=== PATIENT | male | born 1985 | race Hispanic/Latino ===

== ENCOUNTER 2020-03-25 21:21 | Observation (INO) | payer MEDICAID, SELFPAY ==
[2020-03-25 21:21] VITALS: BP 120/92; PULSE 76; RESP 16; TEMP 36.2; O2SAT 100; BMI 25.7
[2020-03-25 21:51] LABS: Absolute Lymphocyte Count 2.42 X10^3/uL (0.83-4.51); Absolute Neutrophil Count 5.5 X10^3/uL (2.0-7.7); Basophil# 0.02 X10^3/uL; Basophil% 0.2 % (0-1); Eosinophils% 1.2 % (0-5); Hematocrit 42.8 % (40-54); Hemoglobin 13.8 g/dL (13.0-16.5); Lymphocyte # 2.42 X10^3/ul (4.0); Lymphocyte % 27.9 % (19-41); Mean Corp Hgb Conc 32.2 g/dL (32-36); Mean Corpuscular Hgb 30.9 pg (27.0-32.0); Mean Platelet Vol. 9.1 fl (6.2-12.0); Monocyte# 0.63 X10^3/uL; Monocyte% 7.3 % (0-10); NRBC Flagged by Analyzer 0 % (0-5); Neutrophil # 5.48 X10^3/uL (2.7-7.7); Neutrophil % 63.2 % (47-70); Platelet Count 247 K/mm3 (150-450); RBC Distribution Width CV 13.3 % (11.6-14.6); Red Blood Count 4.46 M/mm3 (4.6-6.2); White Blood Count 8.7 K/mm3 (4.4-11.0)
[2020-03-25 21:59] LABS: Amphetamine Urine VISTA NEGATIVE (<1000 ng/mL); Barbiturate Urine VISTA NEGATIVE (< 200 ng/mL); Benzodiazepine Urine VISTA NEGATIVE (< 200 ng/mL); Cocaine Urine VISTA NEGATIVE (< 300 ng/mL); Ecstacy Urine VISTA NEGATIVE (< 500 ng/mL); Methadone Urine VISTA NEGATIVE (< 300 ng/mL); PCP Urine VISTA NEGATIVE (< 25 ng/mL); THC Urine VISTA NEGATIVE (< 50 ng/mL); Vista UDS pH Range 6
[2020-03-25 22:04] LABS: ALB/GLOB Ratio 1.2 RATIO (0.9-2.4); AST(SGOT) 46 U/L (15-37); Alanine Aminotransfer ALT/SGPT 79 U/L (16-61); Albumin, Serum 4.2 g/dL (3.2-5.0); Alkaline Phosphatase 86 U/L (45-117); Anion Gap 3 (5-15); BUN 8 mg/dL (7-18); BUN/Creat Ratio 8.7 RATIO (10-20); Calcium,Total 8.9 mg/dL (8.5-10.1); Chloride 105 mmol/L (98-107); Creatinine, Serum 0.92 mg/dL (0.70-1.30); EST Glomerular Filtration Rate 99 mL/min (>60); Est Glom Filt Rate - Afr Amer 120 mL/min (>60); Estimated Creatinine Clearance 124.18 ml/min; Globulin 3.6 g/dL (2.2-4.2); Glucose 107 mg/dL (74-106); Potassium 3.7 mmol/L (3.5-5.1); Protein, Total 7.8 g/dL (6.4-8.2); Sodium Level 139 mmol/L (136-145)
[2020-03-25 22:21] LABS: Alcohol, Blood (Medical)-Serum < 3.0 mg/dL
--- NOTE | 2020-03-25 22:28 | ED.VIS.GEN ---
History of Present Illness Chief Complaint: Substance Abuse Informant: Patient Narrative: 4-year-old male with history of opioid abuse presents for detox. He states his last use was earlier today. He usually uses less than half a gram of what he thought was heroin however it could have been fentanyl. Patient used to inject but now he only snorts it. He states that he has detoxed in the past. Patient denies EtOH use. Denies other illicit drug use. Denies medical problems. Past Medical History - Allergies and Home Meds Allergies/Adverse Reactions: Allergies No Known Allergies Allergy (Verified 03/25/20 21:24) Primary Care Physician: Care Physician,No Primary [Primary Care Provider] - Prior records reviewed: Yes Past Medical History: - - Heroin abuse Lives: Alone Smoking Status: Unknown if ever smoked Alcohol: None Drugs: Heroin Review of Systems General: Denies: Chills, Fever, Sweats Eyes: Denies: Visual changes - bilaterally, Diplopia ENT: Denies: Rhinorrhea, Sore throat Cardiovascular: Denies: Chest pain, Palpitations Respiratory: Denies: Dyspnea, Cough, Dyspnea on exertion Gastrointestinal: Denies: Abdominal pain, Nausea, Vomiting, Diarrhea, Melena, Hematochezia Genitourinary: Denies: Dysuria, Hematuria, Frequency Musculoskeletal: Denies: Back pain, Extremity Pain Skin: Denies: Rash, Wounds Neurological: Denies: Headache, Weakness, Numbness Psych: Denies: Depression, Anxiety, Suicidal thoughts, Suicidal ideations, -, - Endocrine: Denies: Polyuria, Polydipsia, Heat intolerance, Cold intolerance, -, - Physical Exam Vital Signs/Narrative: Vital Signs Temp Pulse Resp BP Pulse Ox 03/25/20 21:21 97.2 F L 76 16 120/92 H 100 Inital Vital Signs reviewed: Yes General: Well nourished, No Acute Distress Head: Normocephalic, Atraumatic Eyes: Perrl, EOMI ENT: Moist mucous membranes, No rhinorrhea Cardiovascular: Regular rate, Regular rhythm Respiratory: No distress, CTA bilaterally Extremities: Nontender, No edema Skin: Normal color, No rash. Negative for: Cyanosis, Diaphoresis Neurological: Alert, Oriented x3, Cranial nerves II-XII grossly intact Psychological: Normal affect, Normal Mood Diagnostic/Tx/Re-eval Laboratory Data 03/25/20 03/25/20 03/25/20 21:30 21:35 21:35 WBC 8.7 RBC 4.46 L Hgb 13.8 Hct 42.8 MCV 96.0 H MCH 30.9 MCHC 32.2 RDW Std Deviation 47.0 H RDW Coeff of Jimena 13.3 Plt Count 247 MPV 9.1 Immature Gran % (Auto) 0.200 Neut % (Auto) 63.2 Lymph % (Auto) 27.9 [place] % (Auto) 7.3 Eos % (Auto) 1.2 Baso % (Auto) 0.2 Absolute Neuts (auto) 5.5 Absolute Lymphs (auto) 2.42 Nucleated RBC % 0 Sodium 139 Potassium 3.7 Chloride 105 Carbon Dioxide 31.0 Anion Gap 3 L BUN 8 Creatinine 0.92 Estim Creat Clear Calc 124.18 Est GFR (MDRD) Af Amer 120 Est GFR (MDRD) Non-Af 99 BUN/Creatinine Ratio 8.7 L Glucose 107 H Calcium 8.9 Total Bilirubin 0.50 AST 46 H ALT 79 H Alkaline Phosphatase 86 Total Protein 7.8 Albumin 4.2 Globulin 3.6 Albumin/Globulin Ratio 1.2 Urine Opiates Screen NEGATIVE Urine Methadone Screen NEGATIVE Ur Barbiturates Screen NEGATIVE Ur Phencyclidine Scrn NEGATIVE Ur Amphetamines Screen NEGATIVE U Methamphetamin-MDMA NEGATIVE U Benzodiazepines Scrn NEGATIVE Urine Cocaine Screen NEGATIVE U Cannabinoids Screen NEGATIVE Ur Drug Screen Comment Ethyl Alcohol 03/25/20 21:35 WBC RBC Hgb Hct MCV MCH MCHC RDW Std Deviation RDW Coeff of Jimena Plt Count MPV Immature Gran % (Auto) Neut % (Auto) Lymph % (Auto) [place] % (Auto) Eos % (Auto) Baso % (Auto) Absolute Neuts (auto) Absolute Lymphs (auto) Nucleated RBC % Sodium Potassium Chloride Carbon Dioxide Anion Gap BUN Creatinine Estim Creat Clear Calc Est GFR (MDRD) Af Amer Est GFR (MDRD) Non-Af BUN/Creatinine Ratio Glucose Calcium Total Bilirubin AST ALT Alkaline Phosphatase Total Protein Albumin Globulin Albumin/Globulin Ratio Urine Opiates Screen Urine Methadone Screen Ur Barbiturates Screen Ur Phencyclidine Scrn Ur Amphetamines Screen U Methamphetamin-MDMA U Benzodiazepines Scrn Urine Cocaine Screen U Cannabinoids Screen Ur Drug Screen Comment Ethyl Alcohol < 3.0 - Medical Decision Making 34-year-old male with history of heroin abuse presenting for detox. He states he could have been using fentanyl is unsure which type of drug he is using. Patient is not experiencing significant withdrawal symptoms currently but states he does usually have significant withdrawal while detoxing. Patient's urine drug screen is negative. EtOH is negative. His other lab work is unremarkable. His vital signs are stable he is afebrile. He was discussed with hospitalist for inpatient detox. Patient will be admitted to [facility]. Impression: 1. Opioid detox ED Disposition - Plan for ED Patient: Referrals: Care Physician,No Primary [Primary Care Provider] -
--- NOTE | 2020-03-25 22:35 | HP.PCM_ITS ---
Problem List (1) Opioid abuse Status: Acute History of Present Illness Date of Admission: 03/25/20 Chief Complaint: Desire for detoxification The patient is a 34 year old M with a significant history of drug abuse who presents to the emergency department with a desire for detoxify from alcohol. Patient uses a little less than a gram of what he thinks is heroin but concerned that it may be fentanyl. Previously he used to shoot but now he snort. His last use was on the same day of presentation at about 4 PM. When he had used about half of what he was going to use his family appeared and he had to discard the rest of the drug. His family encouraged him to come to the emergency department and enroll in a detoxification program. While the emergency department he reported withdrawal symptoms. He reports his withdrawal symptoms as pain in his right leg. He reported that typically with withdrawal symptoms he usually have pain in his right leg, nausea; diaphoresis and chills. At the time of examination his only withdrawal symptoms was pain in his right leg which was just starting. He has been using drugs off and on. One time he was in correction and he quit using drugs. Past Medical History Medical History: Medical History (Last Updated 03/25/20 @ 23:[address] Nino Akhtar MD) Denies previous medical history Allergies No Known Allergies Allergy (Verified 03/25/20 21:24) Home Medications: Ambulatory Orders Medication Instructions Recorded NK 03/25/20 Surgical History: herniorrhaphy Lives: Alone Smoking Status: Current every day smoker Tobacco Use: Cigarettes Alcohol: None Drugs: Heroin - *Family History Maternal History Items: - - Patient does not know his mother nor his maternal medical history. Paternal History Items: Diabetes Review of Systems Constitutional: Denies: Chills, Fever, Weight Change HEENT: Denies: Head Aches, Sinus Congestion, Sinus Drainage Cardiovascular: Denies: Chest Pain, Palpitations Respiratory: Denies: Cough, Shortness of breath at rest, Sputum production Gastrointestinal: Denies: Abdominal Pain, Nausea, Vomiting Genitourinary: Denies: Dysuria Musculoskeletal: Reports: Leg Pain. Denies: Joint Pain, Joint Tenderness Skin: Denies: Rash, Wounds Neurological: Denies: Numbness, Tingling, Focal weakness Psychiatric: Denies: Anxiety, Depression, Homicidal Ideations, Suicidal Ideations Hematologic/ Lymphatic: Denies: Easy Bruising, Easy Bleeding VTE Information - Inpt Only VTE Present on Admission: No VTE Mechan Device Prophylaxis: None VTE Pharm Prophylaxis ordered?: No Reason prophylaxis not ordered:: Treatment Not Indicated - Low risk, encouraged to ambulate Patient Problems: Active and Suspected Problems (Last Updated 03/25/20 @ 23:[address] Nino Akhtar MD) Opioid abuse (Acute) - Physical Exam Vitals/I&O's: Vital Signs Temp Pulse Resp BP Pulse Ox 97.2 F L 76 16 120/92 H 100 03/25/20 21:21 03/25/20 21:21 03/25/20 21:21 03/25/20 21:21 03/25/20 21:21 Oxygen Delivery Method Room Air Weight: 86.2 kg Body Mass Index (BMI) 25.7 General: Alert, Oriented x3, Cooperative HEENT: Atraumatic, PERRLA, EOMI, Normocephalic Neck: Supple, No JVD, Negative Carotid Bruits Lungs: Clear to auscultation, Normal air movement Cardiovascular: Regular rate, No murmurs Abdomen: Bowel Sounds Present, Soft, Non Tender Extremities: No edema, Capillary Refill Less than 3 Seconds Skin: No rashes, No breakdown Musculoskeletal: No Tenderness to Palpation of Joints or Extremities Neurological: Cranial nerves II-XII grossly intact Psych/Mental Status: Normal Affect, Appropriate Laboratory Results 03/25/20 21:30: Urine Opiates Screen NEGATIVE, Urine Methadone Screen NEGATIVE, Ur Barbiturates Screen NEGATIVE, Ur Phencyclidine Scrn NEGATIVE, Ur Amphetamines Screen NEGATIVE, U Methamphetamin-MDMA NEGATIVE, U Benzodiazepines Scrn NEGATIVE, Urine Cocaine Screen NEGATIVE, U Cannabinoids Screen NEGATIVE, Ur Drug Screen Comment 03/25/20 21:35: WBC 8.7, RBC 4.46 L, Hgb 13.8, Hct 42.8, MCV 96.0 H, MCH 30.9, MCHC 32.2, RDW Std Deviation 47.0 H, RDW Coeff of Jimena 13.3, Plt Count 247, MPV 9.1, Immature Gran % (Auto) 0.200, Neut % (Auto) 63.2, Lymph % (Auto) 27.9, [place] % (Auto) 7.3, Eos % (Auto) 1.2, Baso % (Auto) 0.2, Absolute Neuts (auto) 5.5, Absolute Lymphs (auto) 2.42, Nucleated RBC % 0 03/25/20 21:35: Sodium 139, Potassium 3.7, Chloride 105, Carbon Dioxide 31.0, Anion Gap 3 L, BUN 8, Creatinine 0.92, Estim Creat Clear Calc 124.18, Est GFR (MDRD) Af Amer 120, Est GFR (MDRD) Non-Af 99, BUN/Creatinine Ratio 8.7 L, Glucose 107 H, Calcium 8.9, Total Bilirubin 0.50, AST 46 H, ALT 79 H, Alkaline Phosphatase 86, Total Protein 7.8, Albumin 4.2, Globulin 3.6, Albumin/Globulin Ratio 1.2 03/25/20 21:35: Ethyl Alcohol < 3.0 Assessment/Plan All Active Problems (Last Updated 03/25/20 @ 23:[address] Nino Akhtar MD) Opioid abuse (Acute) The patient is a 34 year old M/F with a significant history of heroine; and tobacco abuse who presents emergency department with a desire for detoxification and with drug withdrawal symptoms. Opioid dependence and withdrawal Patient be started on Subutex and other adjunctive medications: Gabapentin as needed; dicyclomine as needed; Vistaril as needed; methocarbamol as needed; clonidine as needed; Imodium as needed; trazodone as needed and Zofran as needed. Monitor COWS and CINA score Tobacco abuse Counseled Nicotine patch prescribed. DVT prophylaxis Low risk Encourage to ambulate Inpatient E&M: 29904 Init Hosp L2
[2020-03-25 23:01] VITALS: BP 120/65; PULSE 64; RESP 15; TEMP 36.7; O2SAT 97
[2020-03-25 23:34] VITALS: BMI 27.3; BMI 27.4
[2020-03-25 23:40] VITALS: BP 136/74; PULSE 65; RESP 18; TEMP 36.7; O2SAT 100
[2020-03-26] VITALS (7 sets, daily range): BP systolic 103–138; BP diastolic 62–68; PULSE 53–78; RESP 16–18; TEMP 36.4–37; O2SAT 95–100
[2020-03-26] MEDS: Methocarbamol 750 MG Tablet 1500 MG PO ×3 (00:12→17:05)
[2020-03-26] MEDS: traZODone 100 MG Tablet PO ×2 (00:12→20:43)
[2020-03-26] MEDS: Gabapentin 300 MG Capsule PO ×3 (00:12→20:43)
[2020-03-26] MEDS: Acetaminophen 325 MG Tablet 650 MG PO ×3 (02:10→17:05)
[2020-03-26] MEDS: Ondansetron 8 MG Tablet PO ×2 (05:20→20:43)
[2020-03-26] MEDS: Buprenorphine HCl 2 MG TAB.SUBL SL ×3 (05:30→20:43)
--- NOTE | 2020-03-26 07:50 | PN_ITS ---
Patient Problems: Active and Suspected Problems (Last Updated 03/25/20 @ 23:[address] Nino Akhtar MD) Opioid abuse (Acute) Reason for Visit: Follow-up for acute opioid withdrawal Objective: Patient is very agitated even after giving buprenorphine and other medications including hydroxyzine, clonidine, methocarbamol Blood pressure is in normal range except 1 time 103/63. Repeat blood pressure 134/62. Heart rate 53/min. 1 dose Librium 50 mg given for agitation. Physical exam General: Awake, disoriented to time and place, cooperative, restless, anxious HEENT: Atraumatic, PERRLA, EOMI, Normocephalic Oral: No Gingival or Mucosal Lesions/ Ulcerations Neck: Supple, No JVD, Negative Carotid Bruits Lungs: Air entry diminished in bilateral lung bases. No crepitation/rhonchi Cardiovascular: Regular rate, Regular Rhythm, Normal S1, Normal S2, No murmurs Abdomen: Bowel Sounds Present, Soft, Non Tender, Non-Distended : No renal angle tenderness. No suprapubic tenderness. Extremities: No edema, Capillary Refill Less than 3 Seconds Skin: No rashes, No breakdown Musculoskeletal: No Tenderness to Palpation of Joints or Extremities Neurological: Cranial nerves II-XII grossly intact, Deep Tendon Reflexes 2+/4 and Symmetrical, Neuro grossly intact Psych/Mental Status: Normal Affect, Appropriate. Vitals/I&O's: Vital Signs Temp Pulse Resp BP Pulse Ox 98.1 F 63 18 123/66 H 96 03/26/20 05:06 03/26/20 05:06 03/26/20 05:06 03/26/20 05:06 03/26/20 05:06 Oxygen Delivery Method Room Air Weight: 202 lb Body Mass Index (BMI) 27.3 Laboratory Results 03/25/20 21:30: Urine Opiates Screen NEGATIVE, Urine Methadone Screen NEGATIVE, Ur Barbiturates Screen NEGATIVE, Ur Phencyclidine Scrn NEGATIVE, Ur Amphetamines Screen NEGATIVE, U Methamphetamin-MDMA NEGATIVE, U Benzodiazepines Scrn NEGATIVE, Urine Cocaine Screen NEGATIVE, U Cannabinoids Screen NEGATIVE, Ur Drug Screen Comment 03/25/20 21:35: WBC 8.7, RBC 4.46 L, Hgb 13.8, Hct 42.8, MCV 96.0 H, MCH 30.9, MCHC 32.2, RDW Std Deviation 47.0 H, RDW Coeff of Jimena 13.3, Plt Count 247, MPV 9.1, Immature Gran % (Auto) 0.200, Neut % (Auto) 63.2, Lymph % (Auto) 27.9, [place] % (Auto) 7.3, Eos % (Auto) 1.2, Baso % (Auto) 0.2, Absolute Neuts (auto) 5.5, Absolute Lymphs (auto) 2.42, Nucleated RBC % 0 03/25/20 21:35: Sodium 139, Potassium 3.7, Chloride 105, Carbon Dioxide 31.0, Anion Gap 3 L, BUN 8, Creatinine 0.92, Estim Creat Clear Calc 124.18, Est GFR (MDRD) Af Amer 120, Est GFR (MDRD) Non-Af 99, BUN/Creatinine Ratio 8.7 L, G lucose 107 H, Calcium 8.9, Total Bilirubin 0.50, AST 46 H, ALT 79 H, Alkaline Phosphatase 86, Total Protein 7.8, Albumin 4.2, Globulin 3.6, Albumin/Globulin Ratio 1.2 03/25/20 21:35: Ethyl Alcohol < 3.0 Current Medications Acetaminophen (Acetaminophen 325 Mg Tablet) 650 mg PO Q6H PRN PRN PRN Reason: Pain 1-10 or Fever Last Admin: 03/26/20 02:10 Dose: 650 mg Documented by: Buprenorphine HCl (Buprenorphine Hcl 2 Mg Tab.Subl) 4 mg SL Q8H CAROLINE; Taper Stop: 03/29/20 05:29 Last Admin: 03/26/20 05:30 Dose: 4 mg Documented by: Clonidine (Clonidine Hcl 0.1 Mg Tablet) 0.1 mg PO Q8H PRN PRN PRN Reason: RESTLESSNESS Dicyclomine HCl (Dicyclomine 10 Mg Capsule) 20 mg PO Q6H PRN PRN PRN Reason: Abdominal Discomfort Gabapentin (Gabapentin 300 Mg Capsule) 300 mg PO Q8H PRN PRN PRN Reason: moderate to severe anxiety Last Admin: 03/26/20 00:12 Dose: 300 mg Documented by: Hydroxyzine Pamoate (Hydroxyzine Tiffany 25 Mg Capsule) 50 mg PO Q6H PRN PRN PRN Reason: mild anxiety Loperamide HCl (Loperamide 2 Mg Capsule) 2 mg PO Q4H PRN PRN PRN Reason: LOOSE STOOLS Methocarbamol (Methocarbamol 750 Mg Tablet) 1,500 mg PO Q6H PRN PRN PRN Reason: MUSCLE SPASM Last Admin: 03/26/20 00:12 Dose: 1,500 mg Documented by: Nicotine (Nicotine 21 Mg Patch) 21 mg TD DAILY CAROLINE Last Admin: 03/26/20 00:16 Dose: 21 mg Documented by: Ondansetron HCl (Ondansetron 8 Mg Tablet) 8 mg PO Q8H PRN PRN PRN Reason: NAUSEA Last Admin: 03/26/20 05:20 Dose: 8 mg Documented by: Trazodone HCl (Trazodone 100 Mg Tablet) 100 mg PO QHS PRN PRN PRN Reason: INSOMNIA Last Admin: 03/26/20 00:12 Dose: 100 mg Documented by: STROKE Vital Signs/Narrative: Vital Signs Temp Pulse Resp BP Pulse Ox 03/26/20 05:06 98.1 F 63 18 123/66 H 96 Medical Necessity - Tobacco Use Smoking Status: Current every day smoker Tobacco Use: Cigarettes Assessment/Plan All Active Problems (Last Updated 03/25/20 @ 23:[address] Nino Akhtar MD) Opioid abuse (Acute) The patient is a 34 year old M with a significant history of heroine; and tobacco abuse who presents emergency department is being admitted for medical stabilization of acute opioid withdrawal symptoms. 1. Acute opioid withdrawal syndrome with hyperactive delirium: On buprenorphine, clonidine, hydroxyzine, trazodone and methocarbamol. 1 dose of Librium given for agitation. Patient is disoriented and restless. Monitor COWS and CINA score 2. Chronic opioid use, dependence and tolerance: Patient used to IV heroin in recent past and she has to snorting and smoking. He has history of chronic hepatitis C. 3. Chronic cigarette smoker/nicotine dependence: On nicotine patch. DVT prophylaxis Low risk Encourage to ambulate Inpatient E&M: [address] [facility] Hosp L2
[2020-03-26] MEDS: hydrOXYzine PAM 25 MG Capsule 50 MG PO ×2 (10:45→17:05)
[2020-03-26] MEDS: cloNIDine HCl 0.1 MG Tablet PO ×2 (10:46→20:43)
--- NOTE | 2020-03-26 11:53 | NURSING ---
PT VERY ANXIOUS, TEARFUL, STATING HE WANTS TO CALL SOMEONE. ALL AVAILABLE PRN MEDICATIONS GIVEN EARLIER. CORTEXT TO DR YEPEZ REGARDING SAME. NEW ORDER RECEIVED.
[2020-03-26] MEDS: chlordiazePOXIDE 25 MG Capsule 50 MG PO (12:18)
[2020-03-26] MEDS: Ibuprofen 600 MG Tablet PO ×2 (12:18→20:42)
--- NOTE | 2020-03-26 12:38 | NURSING ---
PT AMBULATING IN [place], STATES PAIN IN HIS LEGS IS KILLING HIM - PT RECEIVED MOTRIN, TYLENOL & METHOCARBOMOL. PT WALKED TO LOBBY & LAID DOWN ON THE FLOOR FOR A FEW MOMENTS & THEN WALKED BACK TO HIS ROOM.
--- NOTE | 2020-03-26 17:30 | NURSING ---
PT REMAINS ANXIOUS, C/O CHILLS, N/V, BODY ACHES, STATES FEELS MISERABLE. CORTEXT TO DR YEPEZ REGARDING SAME. NEW ORDER RECEIVED.
[2020-03-26] MEDS: proMETHazine 25 MG/ML Syringe IM (17:56)
[2020-03-26] MEDS: Dicyclomine 10 MG Capsule 20 MG PO (20:43)
[2020-03-27 05:02] VITALS: BP 112/64; PULSE 56; RESP 16; TEMP 36.4; O2SAT 99
[2020-03-27] MEDS: cloNIDine HCl 0.1 MG Tablet PO ×2 (05:07→13:44)
[2020-03-27] MEDS: Dicyclomine 10 MG Capsule 20 MG PO ×2 (05:07→13:44)
[2020-03-27] MEDS: Buprenorphine HCl 2 MG TAB.SUBL SL ×3 (05:07→21:23)
[2020-03-27] MEDS: Methocarbamol 750 MG Tablet 1500 MG PO ×3 (05:07→21:24)
[2020-03-27] MEDS: Acetaminophen 325 MG Tablet 650 MG PO (05:08)
[2020-03-27] MEDS: Gabapentin 300 MG Capsule PO ×3 (05:08→21:24)
[2020-03-27] MEDS: Folic Acid 1 MG Tablet PO (08:26)
[2020-03-27] MEDS: Thiamine Hydrochloride 100 MG Tablet PO (08:26)
[2020-03-27] MEDS: hydrOXYzine PAM 25 MG Capsule 50 MG PO ×2 (08:31→21:23)
--- NOTE | 2020-03-27 09:35 | ADDICTION ---
This account underwriter met with PT in his room to complete ASAM, MSE, DUDIT assessments and discharge plan. PT a/o x4 and engaged appropriately. All assessments completed and faxed to [facility]. Appointment made for follow-up with Adarsh on 03/30/20 for assessment. PT amiable. PT did not identify a need for transportation upon d/c from [facility].
[2020-03-27 11:02] VITALS: BP 101/55; PULSE 54; RESP 16; TEMP 37; O2SAT 98
--- NOTE | 2020-03-27 16:15 | PCM.PN.HOSP ---
Patient Problems: Active and Suspected Problems (Last Updated 03/25/20 @ 23:[address] Nino Akhtar MD) Opioid abuse (Acute) Reason for Visit: Follow-up for acute opioid withdrawal syndrome. Objective: Patient had a rough day yesterday and since of hallucination, agitation, restlessness. He fell 2 or 3 times and hit the head on the bed railing. No major injury. Physical exam General: Alert, Oriented x3, Cooperative HEENT: Atraumatic, PERRLA, EOMI, Normocephalic. Mild effusion on the right supraorbital margin. No bony fracture. Oral: No Gingival or Mucosal Lesions/ Ulcerations Neck: Supple, No JVD, Negative Carotid Bruits Lungs: Air entry diminished in bilateral lung bases. No crepitation/rhonchi Cardiovascular: Regular rate, Regular Rhythm, Normal S1, Normal S2, No murmurs Abdomen: Bowel Sounds Present, Soft, Non Tender, Non-Distended : No renal angle tenderness. No suprapubic tenderness. Extremities: No edema, Capillary Refill Less than 3 Seconds Skin: No rashes, No breakdown Musculoskeletal: No Tenderness to Palpation of Joints or Extremities Neurological: Cranial nerves II-XII grossly intact, Deep Tendon Reflexes 2+/4 and Symmetrical, Neuro grossly intact Psych/Mental Status: Normal Affect, Appropriate. Vitals/I&O's: Vital Signs Temp Pulse Resp BP Pulse Ox 98.6 F 54 L 16 101/55 L 98 03/27/20 11:02 03/27/20 11:02 03/27/20 11:02 03/27/20 11:02 03/27/20 11:02 Oxygen Delivery Method Room Air Weight: 201 lb 15.095 oz Body Mass Index (BMI) 27.3 Intake and Output for Last 24 Hours 03/25/20 03/26/20 03/27/20 23:59 23:59 23:59 Intake Total 187 / 1870 1600 / 1600 Balance 187 / 1870 1600 / 1600 Current Medications Acetaminophen (Acetaminophen 325 Mg Tablet) 650 mg PO Q6H PRN PRN PRN Reason: Pain 1-10 or Fever Last Admin: 03/27/20 05:08 Dose: 650 mg Documented by: Al Hydroxide/Mg Hydroxide (Mag Hydrox/Al Hydrox/Simeth 30 Ml Udc) 30 ml PO Q6H PRN PRN PRN Reason: dyspesia Bisacodyl (Bisacodyl 10 Mg Suppository) 10 mg RECTAL DAILY PRN PRN Reason: Constipation Buprenorphine HCl (Buprenorphine Hcl 2 Mg Tab.Subl) 2 mg SL Q8H [facility]; Taper Stop: 03/29/20 05:29 Last Admin: 03/27/20 13:43 Dose: 2 mg Documented by: Clonidine (Clonidine Hcl 0.1 Mg Tablet) 0.1 mg PO Q8H PRN PRN PRN Reason: RESTLESSNESS Last Admin: 03/27/20 13:44 Dose: 0.1 mg Documented by: Dicyclomine HCl (Dicyclomine 10 Mg Capsule) 20 mg PO Q6H PRN PRN PRN Reason: Abdominal Discomfort Last Admin: 03/27/20 13:44 Dose: 20 mg Documented by: Folic Acid (Folic Acid 1 Mg Tablet) 1 mg PO DAILY@0800 [facility] Last Admin: 03/27/20 08:26 Dose: 1 mg Documented by: Gabapentin (Gabapentin 300 Mg Capsule) 300 mg PO Q8H PRN PRN PRN Reason: moderate to severe anxiety Last Admin: 03/27/20 13:43 Dose: 300 mg Documented by: Hydroxyzine Pamoate (Hydroxyzine Tiffany 25 Mg Capsule) 50 mg PO Q6H PRN PRN PRN Reason: mild anxiety Last Admin: 03/27/20 08:31 Dose: 50 mg Documented by: Ibuprofen (Ibuprofen 600 Mg Tablet) 600 mg PO Q8H PRN PRN PRN Reason: Pain Score 1-10 Last Admin: 03/26/20 20:42 Dose: 600 mg Documented by: Loperamide HCl (Loperamide 2 Mg Capsule) 2 mg PO Q4H PRN PRN PRN Reason: LOOSE STOOLS Methocarbamol (Methocarbamol 750 Mg Tablet) 1,500 mg PO Q6H PRN PRN PRN Reason: MUSCLE SPASM Last Admin: 03/27/20 13:43 Dose: 1,500 mg Documented by: Nicotine (Nicotine 21 Mg Patch) 21 mg TD DAILY [facility] Last Admin: 03/27/20 11:33 Dose: 21 mg Documented by: Ondansetron HCl (Ondansetron 8 Mg Tablet) 8 mg PO Q8H PRN PRN PRN Reason: NAUSEA Last Admin: 03/26/20 20:43 Dose: 8 mg Documented by: Senna (Senna Tablet) 2 tablet PO QHS PRN PRN Reason: Constipation Thiamine HCl (Thiamine Hydrochloride 100 Mg Tablet) 100 mg PO DAILYCM CAROLINE Last Admin: 03/27/20 08:26 Dose: 100 mg Documented by: Trazodone HCl (Trazodone 100 Mg Tablet) 100 mg PO QHS PRN PRN PRN Reason: INSOMNIA Last Admin: 03/26/20 20:43 Dose: 100 mg Documented by: Medical Necessity - Tobacco Use Smoking Status: Current every day smoker Tobacco Use: Cigarettes Assessment/Plan All Active Problems (Last Updated 03/25/20 @ 23:[address] Nino Akhtar MD) Opioid abuse (Acute) The patient is a 34 year old M with a significant history of heroine; and tobacco abuse who presents emergency department is being admitted for medical stabilization of acute opioid withdrawal symptoms. 1. Acute opioid withdrawal syndrome with hyperactive delirium: On buprenorphine, clonidine, hydroxyzine, trazodone and methocarbamol. 1 dose of Librium given for agitation. Patient is disoriented and restless. Monitor COWS and CINA score 03/27: Patient had fall. Today looks better. He is awake and oriented. He still gets visual hallucinations. Patient required Librium and Phenergan yesterday for agitation. 2. Chronic opioid use, dependence and tolerance: Patient used to IV heroin in recent past and she has to snorting and smoking. He has history of chronic hepatitis C. 3. Chronic cigarette smoker/nicotine dependence: On nicotine patch. DVT prophylaxis Low risk Encourage to ambulate Inpatient E&M: 61415 [facility] Hosp L2
[2020-03-27 16:53] VITALS: O2SAT 98
[2020-03-27 19:58] VITALS: BP 106/67; PULSE 56; RESP 16; TEMP 36.4; O2SAT 98
[2020-03-27] MEDS: Ibuprofen 600 MG Tablet PO (20:03)
[2020-03-27] MEDS: traZODone 100 MG Tablet PO (21:24)
[2020-03-28 03:14] VITALS: BP 122/71; PULSE 61; RESP 16; TEMP 36.5; O2SAT 96
[2020-03-28] MEDS: Buprenorphine HCl 2 MG TAB.SUBL SL (04:42)
[2020-03-28] MEDS: Methocarbamol 750 MG Tablet 1500 MG PO ×2 (04:42→12:36)
[2020-03-28 09:00] VITALS: BP 115/69; PULSE 62; RESP 14; TEMP 37.3; O2SAT 99
[2020-03-28] MEDS: Thiamine Hydrochloride 100 MG Tablet PO (09:39)
[2020-03-28] MEDS: Folic Acid 1 MG Tablet PO (09:39)
[2020-03-28] MEDS: Ibuprofen 600 MG Tablet PO (09:44)
--- NOTE | 2020-03-28 10:32 | DCINST_ITS ---
- Discharge Diagnoses Current Active Problems: Current Active and Chronic Problems (Last Updated 03/25/20 @ 23:[address] Nino Akhtar MD) Opioid abuse (Acute) You will use the following diet at home:: No restrictions Your food should be the consistency of: Regular Allergies/Adverse Reactions: Allergies No Known Allergies Allergy (Verified 03/25/20 21:24) Medications to take at Discharge NK 03/25/20 Primary Care Physician: Care Physician,No Primary [Primary Care Provider] - Test Results: Test results from this visit will be discussed in further detail at your follow- up appointment, if applicable. Please Follow Up With: Adarsh When: 03/30/2020 Proposed Discharge Date: 03/28/20
--- NOTE | 2020-03-28 10:34 | DS.PCM_ITS ---
Discharge Date and Diagnosis - Problem List Patient Problems: Active and Suspected Problems (Last Updated 03/25/20 @ 23:[address] Nino Akhtar MD) Opioid abuse (Acute) Date of Admission: 03/25/20 Date of Discharge: 03/28/20 - Primary Discharge Diagnosis Acute Problems: Active Problems (Last Updated 03/25/20 @ 23:[address] Nino Akhtar MD) Opioid abuse (Acute) Hospital Course and Treatment Operations: None Procedures: None Summary of Care Provided: The patient is a 34 year old M 6 treatment for acute opiate withdrawal. Patient uses heroin which he thinks likely has fentanyl in it as well. Patient had a complicated course where he was having severe withdrawal symptoms with myalgias and also hallucinations. Patient felt just very ill overall. Patient was able to stick with it and did eventually feel better. He did express some reservation about continue with the buprenorphine as he is concerned about prolonged withdrawal. Reassurance was provided to him is that he has been put on that to help him through the acute opiate withdrawal symptoms with his heroin/fentanyl. He stated that he has quit before though that was involuntary when he was imprisoned previously. He said that this time was much worse but he stated at that time he was using some likely street heroin and not heroin likely cut with fentanyl. Patient was seen by addiction medicine and he plans to follow-up with [facility] and work with her outpatient program. He wishes to continue with the outpatient program because he wants to continue to work. Patient will receive his last dose of buprenorphine at 1730 today. Afterwards, he will be discharged and then follow-up with [facility] on the . [] Patient Problems: Active and Suspected Problems (Last Updated 03/25/20 @ 23:[address] Nino Akhtar MD) Opioid abuse (Acute) - Physical Exam Vitals/I&O's: Vital Signs Temp Pulse Resp BP Pulse Ox 37.3 C 62 14 115/69 99 03/28/20 09:00 03/28/20 09:00 03/28/20 09:00 03/28/20 09:00 03/28/20 09:00 Oxygen Delivery Method Room Air Weight: 91.6 kg Body Mass Index (BMI) 27.3 Intake and Output for Last 24 Hours 01/17/21 01/18/21 01/19/21 23:59 23:59 23:59 Intake Total 1869 2850 / 2850 1350 / 1350 Balance 1869 2850 / 2850 1350 / 1350 General: Alert, No apparent distress HEENT: Atraumatic, Normocephalic Psych/Mental Status: Normal Affect, Appropriate Current Medications Acetaminophen (Acetaminophen 325 Mg Tablet) 650 mg PO Q6H PRN PRN PRN Reason: Pain 1-10 or Fever Last Admin: 03/27/20 05:08 Dose: 650 mg Documented by: Al Hydroxide/Mg Hydroxide (Mag Hydrox/Al Hydrox/Simeth 30 Ml Udc) 30 ml PO Q6H PRN PRN PRN Reason: dyspesia Bisacodyl (Bisacodyl 10 Mg Suppository) 10 mg RECTAL DAILY PRN PRN Reason: Constipation Buprenorphine HCl (Buprenorphine Hcl 2 Mg Tab.Subl) 2 mg SL Q12H [facility]; Taper Stop: 03/29/20 05:29 Last Admin: 03/28/20 04:42 Dose: 2 mg Documented by: Clonidine (Clonidine Hcl 0.1 Mg Tablet) 0.1 mg PO Q8H PRN PRN PRN Reason: RESTLESSNESS Last Admin: 03/27/20 13:44 Dose: 0.1 mg Documented by: Dicyclomine HCl (Dicyclomine 10 Mg Capsule) 20 mg PO Q6H PRN PRN PRN Reason: Abdominal Discomfort Last Admin: 03/27/20 13:44 Dose: 20 mg Documented by: Folic Acid (Folic Acid 1 Mg Tablet) 1 mg PO DAILY@0800 CAROLINE Last Admin: 03/28/20 09:39 Dose: 1 mg Documented by: Gabapentin (Gabapentin 300 Mg Capsule) 300 mg PO Q8H PRN PRN PRN Reason: moderate to severe anxiety Last Admin: 03/27/20 21:24 Dose: 300 mg Documented by: Hydroxyzine Pamoate (Hydroxyzine Tiffany 25 Mg Capsule) 50 mg PO Q6H PRN PRN PRN Reason: mild anxiety Last Admin: 03/27/20 21:23 Dose: 50 mg Documented by: Ibuprofen (Ibuprofen 600 Mg Tablet) 600 mg PO Q8H PRN PRN PRN Reason: Pain Score 1-10 Last Admin: 03/28/20 09:44 Dose: 600 mg Documented by: Loperamide HCl (Loperamide 2 Mg Capsule) 2 mg PO Q4H PRN PRN PRN Reason: LOOSE STOOLS Methocarbamol (Methocarbamol 750 Mg Tablet) 1,500 mg PO Q6H PRN PRN PRN Reason: MUSCLE SPASM Last Admin: 03/28/20 04:42 Dose: 1,500 mg Documented by: Nicotine (Nicotine 21 Mg Patch) 21 mg TD DAILY [facility] Last Admin: 03/28/20 09:39 Dose: 21 mg Documented by: Ondansetron HCl (Ondansetron 8 Mg Tablet) 8 mg PO Q8H PRN PRN PRN Reason: NAUSEA Last Admin: 03/26/20 20:43 Dose: 8 mg Documented by: Senna (Senna Tablet) 2 tablet PO QHS PRN PRN Reason: Constipation Thiamine HCl ([facility] 100 Mg [facility]t) [facility] Last Admin: 03/28/20 09:39 Dose: 100 mg Documented by: Trazodone HCl (Trazodone 100 Mg Tablet) 100 mg PO QHS PRN PRN PRN Reason: INSOMNIA Last Admin: 03/27/20 21:24 Dose: 100 mg Documented by: Discharge Diet: No Restrictions Home Medications: Medications to take at Discharge NK 03/25/20 Primary Care Physician: Care Physician,No Primary [Primary Care Provider] - Please Follow Up With: Adarsh When: 03/30/2020 Disposition: Home Minutes spent on discharge:: 32 Patient Condition:: Good Medical Necessity - Tobacco Use Smoking Status: Current every day smoker Tobacco Use: Cigarettes Meaningful Use Info Meaningful Use Diagnoses (Choose all that apply): None applicable Inpatient E&M: 93500 Disch Hosp
[2020-03-28] MEDS: Gabapentin 300 MG Capsule PO (12:36)
--- NOTE | 2020-03-28 18:01 | NURSING ---
this nurse made multiple calls to jona at [facility] trying to get pt placed in inpatient rehab, after speaking w/pts felipe valdez. jona offered to have pt come down today, fill out paperwork and tomorrow come back and do the video assessment. this was offered to pt and he was good with this but when this nurse called gf, she voiced disappointment and still wanted him placed. i spoke w/jona at [facility] 3 more times as well as courtney until she became quite rude on the phone and refused to provide the phone number of the [facility] that she insisted [facility] needed to provide the pts medical release papers to [place]. pt and i then attempted to call the [facility] in [place] after googling said place, we did get through and spoke with several people for pt to be told that they would still probably not have a bed available for 4-5 days. total time this nurse spent was approx 100minuts. pt was very apologetic for the hassle and for his gfs attitude
== END 2020-03-28 14:35 | disposition home or self-care (01) ==
LOC: ED 22:09 → MS3 03-26 07:09
PROVIDERS: Admitting Provider Hospitalist; Emergency Provider Student in an Organized Health Care Education/Training Program
DX: F11.23 Opioid dependence with withdrawal (principal); F17.210 Nicotine dependence, cigarettes, uncomplicated; B18.2 Chronic viral hepatitis C
CPT/HCPCS: 36415; 80053; 80307; 82077; 85025; 97802; 99283; H0012

== ENCOUNTER 2020-08-09 22:20 | Observation (INO) | payer MEDICAID, SELFPAY ==
[2020-03-25 23:34] VITALS: BMI 27.3
[2020-08-09 22:20] VITALS: BP 109/57; PULSE 68; RESP 18; TEMP 36.2; O2SAT 98; BMI 25.7
--- NOTE | 2020-08-09 22:54 | EX.ED.DYSGE1 ---
HPI History of Present Illness Chief Complaint: Substance Abuse Narrative Narrative: Patient presents with substance abuse request. He stated he is a opiate addict. His last use of fentanyl IV was yesterday evening. He was admitted in March for detox and stated that he stayed clean for 3 months. He also smokes marijuana. Denies other illicit drug use. Hoping to get clean again. [facility] Medical History Denies previous medical history Substance abuse Home Medications NK 03/25/20 [History Last Taken Unknown] Allergy/AdvReac Type Severity Reaction Status Date / Time No Known Allergies Allergy Verified 03/25/20 21:24 Social History Smoking Status: Current every day smoker tobacco type: cigarettes ROS ROS ED ROS Narrative ROS General: Denies fever, chills, sweats Eyes: Denies visual changes, blurred vision, double vision ENT: Denies ear pain, rhinorrhea, sore throat Cardiovascular: Denies chest pain, palpitations, heart racing Respiratory: Denies dyspnea, cough, sputum, dyspnea on exertion, orthopnea,PND GI: Denies abdominal pain, nausea, vomiting, diarrhea, constipation, melena : Denies dysuria, hematuria, frequency Musculoskeletal: Denies myalgias, arthralgias, neck pain, back pain Skin: Denies rash, abscess, abrasions Neuro: Denies headache, weakness, paresthesia Psych: Denies depression, anxiety Endo: Denies polyuria, polydipsia, polyphagia Heme: Denies easy bruising, easy bleeding, lymphadenopathy Allergy: Denies hives, swelling EXAM Physical Exam Narrative Exam Narrative: Vital signs reviewed General: Well-nourished well-developed Head: Normocephalic atraumatic Eyes: Pupils equal round and reactive to light extraocular movements intact ENT: TMs clear no hemotympanum no trauma Neck: Nontender full range of motion Cardiovascular: Regular rate rhythm no murmurs normal S1-S2 Respiratory: No distress clear to auscultation bilaterally chest nontender Abdomen: Soft nontender nondistended normal bowel sounds no masses Back: Nontender no CVA tenderness Extremities: Nontender active range of motion ?4 extremities no trauma Skin: Track renee bilateral arms noted without infection Neuro alert oriented cranial nerves II through XII intact normal strength sensation reflexes Const Vital Signs: 08/09/20 22:20 08/09/20 23:57 Temperature 97.1 F L 97.9 F Temperature Source Temporal Temporal Pulse Rate 68 62 Respiratory Rate 18 16 Blood Pressure 109/57 L 115/57 L Blood Pressure Mean 74 76 Pulse Ox 98 99 Oxygen Delivery Method Room Air Room Air MDM MDM MDM Narrative Medical decision making narrative: Patient will be medically cleared and discussed with detox for admission for opiate addiction. Lab work shows nothing acute except drug screen positive for opiates methamphetamines and cocaine. Discussed with the hospitalist and will be admitted Lab Data Labs: Laboratory Results - last 24 hr 08/09/20 08/09/20 08/09/20 22:30 22:40 22:40 WBC 7.8 RBC 4.33 L Hgb 13.5 Hct 40.3 MCV 93.1 MCH 31.2 MCHC 33.5 RDW Std Deviation 45.7 H RDW Coeff of Jimena 13.3 Plt Count 237 MPV 9.4 Immature Gran % (Auto) 0.100 Neut % (Auto) 50.7 Lymph % (Auto) 33.0 [place] % (Auto) 9.0 Eos % (Auto) 6.6 H Baso % (Auto) 0.6 Absolute Neuts (auto) 3.9 Absolute Lymphs (auto) 2.56 Nucleated RBC % 0 Sodium 139 Potassium 3.9 Chloride 103 Carbon Dioxide 30.0 Anion Gap 6 BUN 16 Creatinine 1.24 Estim Creat Clear Calc 92.13 Est GFR (MDRD) Af Amer 85 Est GFR (MDRD) Non-Af 71 BUN/Creatinine Ratio 12.9 Glucose 82 Calcium 8.8 Total Bilirubin 0.70 AST 69 H ALT 133 H Alkaline Phosphatase 96 Total Protein 7.7 Albumin 4.0 Globulin 3.7 Albumin/Globulin Ratio 1.1 Urine Opiates Screen POSITIVE H Urine Methadone Screen NEGATIVE Ur Barbiturates Screen NEGATIVE Ur Phencyclidine Scrn NEGATIVE Ur Amphetamines Screen NEGATIVE U Methamphetamin-MDMA POSITIVE H U Benzodiazepines Scrn NEGATIVE Urine Cocaine Screen POSITIVE H U Cannabinoids Screen NEGATIVE Ur Drug Screen Comment Ethyl Alcohol 08/09/20 22:40 WBC RBC Hgb Hct MCV MCH MCHC RDW Std Deviation RDW Coeff of Jimena Plt Count MPV Immature Gran % (Auto) Neut % (Auto) Lymph % (Auto) [place] % (Auto) Eos % (Auto) Baso % (Auto) Absolute Neuts (auto) Absolute Lymphs (auto) Nucleated RBC % Sodium Potassium Chloride Carbon Dioxide Anion Gap BUN Creatinine Estim Creat Clear Calc Est GFR (MDRD) Af Amer Est GFR (MDRD) Non-Af BUN/Creatinine Ratio Glucose Calcium Total Bilirubin AST ALT Alkaline Phosphatase Total Protein Albumin Globulin Albumin/Globulin Ratio Urine Opiates Screen Urine Methadone Screen Ur Barbiturates Screen Ur Phencyclidine Scrn Ur Amphetamines Screen U Methamphetamin-MDMA U Benzodiazepines Scrn Urine Cocaine Screen U Cannabinoids Screen Ur Drug Screen Comment Ethyl Alcohol 3.0 Discharge Plan Triage Chief Complaint: Substance Abuse ED Provider: Kimani Handy Dx/Rx/DC Orders Clinical Impression: Opioid abuse Primary Care Provider: Care Physician,No Primary Disposition Disposition: Acute Care Hospital [facility]
[2020-08-09 23:00] LABS: Absolute Lymphocyte Count 2.56 X10^3/uL (0.83-4.51); Absolute Neutrophil Count 3.9 X10^3/uL (2.0-7.7); Basophil# 0.05 X10^3/uL; Basophil% 0.6 % (0-1); Eosinophil# 0.51 X10^3/uL; Eosinophils% 6.6 % (0-5); Hematocrit 40.3 % (40-54); Hemoglobin 13.5 g/dL (13.0-16.5); Lymphocyte # 2.56 X10^3/ul (0.83-4.51); Mean Corp Hgb Conc 33.5 g/dL (32-36); Mean Corpuscular Hgb 31.2 pg (27.0-32.0); Mean Corpuscular Volume 93.1 fL (80-94); Mean Platelet Vol. 9.4 fl (6.2-12.0); NRBC Flagged by Analyzer 0 % (0-5); Neutrophil # 3.93 X10^3/uL (2.7-7.7); Neutrophil % 50.7 % (47-70); Platelet Count 237 K/mm3 (150-450); RBC Distribution Width CV 13.3 % (11.6-14.6); RBC Distribution Width SD 45.7 fl (35.1-43.9); Red Blood Count 4.33 M/mm3 (4.6-6.2); White Blood Count 7.8 K/mm3 (4.4-11.0)
[2020-08-09 23:27] LABS: ALB/GLOB Ratio 1.1 RATIO (0.9-2.4); AST(SGOT) 69 U/L (15-37); Alanine Aminotransfer ALT/SGPT 133 U/L (16-61); Alkaline Phosphatase 96 U/L (45-117); Anion Gap 6 (5-15); BUN 16 mg/dL (7-18); BUN/Creat Ratio 12.9 RATIO (10-20); Calcium,Total 8.8 mg/dL (8.5-10.1); Chloride 103 mmol/L (98-107); Creatinine, Serum 1.24 mg/dL (0.70-1.30); EST Glomerular Filtration Rate 71 mL/min (>60); Est Glom Filt Rate - Afr Amer 85 mL/min (>60); Estimated Creatinine Clearance 92.13 ml/min; Globulin 3.7 g/dL (2.2-4.2); Glucose 82 mg/dL (74-106); Potassium 3.9 mmol/L (3.5-5.1); Protein, Total 7.7 g/dL (6.4-8.2); Sodium Level 139 mmol/L (136-145)
[2020-08-09 23:57] VITALS: BP 115/57; PULSE 62; RESP 16; TEMP 36.6; O2SAT 99
[2020-08-10 00:10] LABS: Amphetamine Urine VISTA NEGATIVE (<1000 ng/mL); Barbiturate Urine VISTA NEGATIVE (< 200 ng/mL); Benzodiazepine Urine VISTA NEGATIVE (< 200 ng/mL); Cocaine Urine VISTA POSITIVE (< 300 ng/mL); Ecstacy Urine VISTA POSITIVE (< 500 ng/mL); Methadone Urine VISTA NEGATIVE (< 300 ng/mL); PCP Urine VISTA NEGATIVE (< 25 ng/mL); THC Urine VISTA NEGATIVE (< 50 ng/mL); Vista UDS pH Range 5
--- NOTE | 2020-08-10 00:11 | HP.PCM_ITS ---
Documented by User: MARCY Lazcano 08/10/20 00:25 HPI - General HPI Narrative VINCENZO CASTRO, is a 34 M who presents for withdrawal from fentanyl and states his amount varies depending on what he can afford. Patient states last time he used was earlier today. Patient reports that he also smokes 1 pack/day of cigarettes along with marijuana. Patient urine tox screen positive for opioids, methamphetamines, cocaine. Patient denies any medical or surgical history. [facility] Medical History Denies previous medical history Substance abuse Home Medications NK 03/25/20 [History Last Taken Unknown] Allergy/AdvReac Type Severity Reaction Status Date / Time No Known Allergies Allergy Verified 03/25/20 21:24 Social History Smoking Status: Current every day smoker tobacco type: cigarettes ROS Constitutional Constitutional: Reports chills; Denies anorexia, fever(s) or malaise Cardiovascular Cardiovascular: Denies chest pain, edema or palpitations Respiratory/Chest Respiratory/Chest: Denies cough, shortness of breath at rest or shortness of breath with exertion Gastrointestinal Gastrointestinal: Denies abdominal pain, constipation, diarrhea, nausea or vomiting Genitourinary Genitourinary: Denies dysuria Musculoskeletal Musculoskeletal: Denies back pain, extremity pain, joint pain or joint stiffness Integumentary Integumentary: Denies dry skin Neurologic Neurologic: Denies abnormal gait, abnormal speech, confusion or dizziness Psychiatric Psychiatric: Denies anxiety or depression Endocrine Endocrinology: Denies change in body appearance Hematologic/Lymphatic Hematologic/Lymphatic: Denies easy bleeding or easy bruising Vital Signs Vital Signs Vital Signs: 08/09/20 22:20 08/09/20 23:57 Temperature 97.1 F L 97.9 F Temperature Source Temporal Temporal Pulse Rate 68 62 Respiratory Rate 18 16 Blood Pressure 109/57 L 115/57 L Blood Pressure Mean 74 76 Pulse Ox 98 99 Oxygen Delivery Method Room Air Room Air Weight Weight: 189 lb 9.6 oz Body Mass Index (BMI) 25.7 Physical Exam Const alert and oriented x3 General Appearance: cooperative HEENT normocephalic and head/scalp atraumatic Neck supple, no JVD and thyroid normal General: trachea midline Lymph Lymphatic: no lymphadenopathy noted Resp normal respiratory effort and clear to auscultation bilaterally Cardio regular rate, regular rhythm, S1 normal heart sound and S2 normal heart sound GI normal to inspection, nondistended, normoactive bowel sounds, soft to palpation and non-tender Extremity normal capillary refill and no clubbing, cyanosis or edema General Extremity: no tenderness to palpation of joints or extremities Skin General Skin Exam: no breakdown and turgor normal Lesions: no lesions Rashes: no rashes Neuro CN's II-XII intact bilaterally Psych thought process normal and affect normal Mood & Affect: anxious Lab / Micro Data Result Diagrams: 08/09/20 22:40 08/09/20 22:40 Labs: Laboratory Results - last 24 hr 08/09/20 08/09/20 08/09/20 22:30 22:40 22:40 WBC 7.8 RBC 4.33 L Hgb 13.5 Hct 40.3 MCV 93.1 MCH 31.2 MCHC 33.5 RDW Std Deviation 45.7 H RDW Coeff of Jimena 13.3 Plt Count 237 MPV 9.4 Immature Gran % (Auto) 0.100 Neut % (Auto) 50.7 Lymph % (Auto) 33.0 [place] % (Auto) 9.0 Eos % (Auto) 6.6 H Baso % (Auto) 0.6 Absolute Neuts (auto) 3.9 Absolute Lymphs (auto) 2.56 Nucleated RBC % 0 Sodium 139 Potassium 3.9 Chloride 103 Carbon Dioxide 30.0 Anion Gap 6 BUN 16 Creatinine 1.24 Estim Creat Clear Calc 92.13 Est GFR (MDRD) Af Amer 85 Est GFR (MDRD) Non-Af 71 BUN/Creatinine Ratio 12.9 Glucose 82 Calcium 8.8 Total Bilirubin 0.70 AST 69 H ALT 133 H Alkaline Phosphatase 96 Total Protein 7.7 Albumin 4.0 Globulin 3.7 Albumin/Globulin Ratio 1.1 Urine Opiates Screen POSITIVE H Urine Methadone Screen NEGATIVE Ur Barbiturates Screen NEGATIVE Ur Phencyclidine Scrn NEGATIVE Ur Amphetamines Screen NEGATIVE U Methamphetamin-MDMA POSITIVE H U Benzodiazepines Scrn NEGATIVE Urine Cocaine Screen POSITIVE H U Cannabinoids Screen NEGATIVE Ur Drug Screen Comment Ethyl Alcohol 08/09/20 22:40 WBC RBC Hgb Hct MCV MCH MCHC RDW Std Deviation RDW Coeff of Jimena Plt Count MPV Immature Gran % (Auto) Neut % (Auto) Lymph % (Auto) [place] % (Auto) Eos % (Auto) Baso % (Auto) Absolute Neuts (auto) Absolute Lymphs (auto) Nucleated RBC % Sodium Potassium Chloride Carbon Dioxide Anion Gap BUN Creatinine Estim Creat Clear Calc Est GFR (MDRD) Af Amer Est GFR (MDRD) Non-Af BUN/Creatinine Ratio Glucose Calcium Total Bilirubin AST ALT Alkaline Phosphatase Total Protein Albumin Globulin Albumin/Globulin Ratio Urine Opiates Screen Urine Methadone Screen Ur Barbiturates Screen Ur Phencyclidine Scrn Ur Amphetamines Screen U Methamphetamin-MDMA U Benzodiazepines Scrn Urine Cocaine Screen U Cannabinoids Screen Ur Drug Screen Comment Ethyl Alcohol 3.0 Assessment & Plan Assessment/Plan (1) Opioid abuse: PLAN: 1. Opioid abuse -Admit to [facility] as part of [facility] program for withdrawal from fentanyl -Subutex taper ordered along with supportive medications for withdrawal -Vital signs per protocol -Oxygen therapy per protocol -Consult case management for coordination with [facility] outpatient treatment program 2. Marijuana use 3. Tobacco abuse -NicoDerm patch daily ordered -Inpatient smoking cessation ordered DVT prophylaxis-Ambulation, no pharmacological prophylaxis indicated. This patient was seen by MARCY Lazcano under the supervision of Dr. Foster. Documented by User: Dr. Jenaro Foster DO 08/10/20 01:14 HPI - General General Date of Admission: 08/10/20 [facility] Medical History Denies previous medical history Substance abuse Home Medications NK 03/25/20 [History Last Taken Unknown] Allergy/AdvReac Type Severity Reaction Status Date / Time No Known Allergies Allergy Verified 03/25/20 21:24 Social History Smoking Status: Current every day smoker tobacco type: cigarettes Lab / Micro Data Result Diagrams: 08/09/20 22:40 08/09/20 22:40 Addendum Addendum: Patient was seen and examined independently from Gerardo Miller he came to the emergency room today at [facility] requesting admission for detox services from IV fentanyl. Patient states he has been through detox before. On examination he appeared to be mildly anxious. Vital signs as documented. Skin warm and dry and without overt rashes. Neck without JVD, neck was supple, trachea midline, thyroid was normal. Lungs clear bilaterally, normal air movement was noted. Heart exam notable for regular rhythm, normal sounds and absence of murmurs, rubs or gallops. Abdomen unremarkable and without evidence of organomegaly, masses, or abdominal aortic enlargement. Bowel sounds are present, abdomen is not distended. Extremities nonedematous, no cyanosis was noted, no clubbing was noted. Neuro: Cranial nerves II through XII are grossly intact, no focal motor deficits were noted, sensation to light touch and pinprick intact, motor exam 5/5 throughout. Psych: Patient is alert and oriented x3, he does not appear anxious or depressed, he does not appear agitated. Patient will be admitted to [facility] for acute opiate withdrawal, orders were placed using the opiate detox order set. I have reviewed Gerardo Miller's history and physical including her medical assessment and plan of care and endorse it. Visit Charges Inpatient E&M: 93913 Init Hosp L3
[2020-08-10 01:08] VITALS: BMI 25.3
[2020-08-10 01:12] VITALS: BP 126/69; PULSE 69; RESP 16; TEMP 36.4; O2SAT 100
[2020-08-10] MEDS: Methocarbamol 750 MG Tablet 1500 MG PO ×2 (02:20→10:13)
[2020-08-10] MEDS: Buprenorphine HCl 2 MG TAB.SUBL 4 MG SL ×2 (02:21→10:13)
[2020-08-10 05:47] VITALS: BP 112/63; PULSE 74; RESP 16; TEMP 36.5; O2SAT 100
--- NOTE | 2020-08-10 07:44 | PN.HOSP_ITS ---
Subjective Subjective Patient is a 34-year-old gentleman with history of opioid dependence admitted with acute opiate withdrawal Objective Data Objective Data Vital Signs: Vital Signs Temp Pulse Resp BP Pulse Ox 97.7 F L 74 16 112/63 100 08/10/20 05:47 08/10/20 05:47 08/10/20 05:47 08/10/20 05:47 08/10/20 05:47 Oxygen Delivery Method Room Air Weight: 85 kg Body Mass Index (BMI) 25.3 Intake & Output: Intake and Output for Last 24 Hours 08/08/20 08/09/20 08/10/20 23:59 23:59 23:59 Intake Total 540 / 540 Balance 540 / 540 Lab / Micro Data Result Diagrams: 08/09/20 22:40 08/09/20 22:40 Labs: Laboratory Results - last 24 hr 08/09/20 08/09/20 08/09/20 22:30 22:40 22:40 WBC 7.8 RBC 4.33 L Hgb 13.5 Hct 40.3 MCV 93.1 MCH 31.2 MCHC 33.5 RDW Std Deviation 45.7 H RDW Coeff of Jimena 13.3 Plt Count 237 MPV 9.4 Immature Gran % (Auto) 0.100 Neut % (Auto) 50.7 Lymph % (Auto) 33.0 [place] % (Auto) 9.0 Eos % (Auto) 6.6 H Baso % (Auto) 0.6 Absolute Neuts (auto) 3.9 Absolute Lymphs (auto) 2.56 Nucleated RBC % 0 Sodium 139 Potassium 3.9 Chloride 103 Carbon Dioxide 30.0 Anion Gap 6 BUN 16 Creatinine 1.24 Estim Creat Clear Calc 92.13 Est GFR (MDRD) Af Amer 85 Est GFR (MDRD) Non-Af 71 BUN/Creatinine Ratio 12.9 Glucose 82 Calcium 8.8 Total Bilirubin 0.70 AST 69 H ALT 133 H Alkaline Phosphatase 96 Total Protein 7.7 Albumin 4.0 Globulin 3.7 Albumin/Globulin Ratio 1.1 Urine Opiates Screen POSITIVE H Urine Methadone Screen NEGATIVE Ur Barbiturates Screen NEGATIVE Ur Phencyclidine Scrn NEGATIVE Ur Amphetamines Screen NEGATIVE U Methamphetamin-MDMA POSITIVE H U Benzodiazepines Scrn NEGATIVE Urine Cocaine Screen POSITIVE H U Cannabinoids Screen NEGATIVE Ur Drug Screen Comment Ethyl Alcohol 08/09/20 22:40 WBC RBC Hgb Hct MCV MCH MCHC RDW Std Deviation RDW Coeff of Jimena Plt Count MPV Immature Gran % (Auto) Neut % (Auto) Lymph % (Auto) [place] % (Auto) Eos % (Auto) Baso % (Auto) Absolute Neuts (auto) Absolute Lymphs (auto) Nucleated RBC % Sodium Potassium Chloride Carbon Dioxide Anion Gap BUN Creatinine Estim Creat Clear Calc Est GFR (MDRD) Af Amer Est GFR (MDRD) Non-Af BUN/Creatinine Ratio Glucose Calcium Total Bilirubin AST ALT Alkaline Phosphatase Total Protein Albumin Globulin Albumin/Globulin Ratio Urine Opiates Screen Urine Methadone Screen Ur Barbiturates Screen Ur Phencyclidine Scrn Ur Amphetamines Screen U Methamphetamin-MDMA U Benzodiazepines Scrn Urine Cocaine Screen U Cannabinoids Screen Ur Drug Screen Comment Ethyl Alcohol 3.0 Physical Exam Narrative GENERAL: cooperative HEENT: Atraumatic; EYES; Anicteric, Normal Conjunctiva NECK; supple, normal thyroid, RESPIRATORY: Diminished to auscultation CARDIOVASCULAR: Regular S1 S2, GI: soft, normoactive bowel sounds, : No Renal angle tenderness; EXTREMITIES: No edema, no clubbing, MUSCULOSKELETAL: no muscle waisting NEURO: Awake; no lateralizing signs. SKIN: No Rash PSYCH; Flat affect Assessment & Plan Assessment/Plan (1) Opioid abuse: PLAN: 34-year-old gentleman with history of opioid dependence presented with acute opiate withdrawal 1. Acute opiate withdrawal ?Patient has been admitted to regular nursing floor for medical stabilization using Subutex taper 2. Tobacco dependence - Counseled on cessation, offered nicotine patch for tobacco cravings 3. Marijuana use -counseled on cessation 4. DVT prophylaxis -low risk did encourage ambulation Visit Charges Inpatient E&M: 13823 Subs Hosp L2
[2020-08-10] MEDS: Gabapentin 300 MG Capsule PO (07:48)
[2020-08-10] MEDS: Dicyclomine 10 MG Capsule 20 MG PO (07:48)
[2020-08-10] MEDS: Ibuprofen 600 MG Tablet PO (07:48)
[2020-08-10] MEDS: Ondansetron 8 MG Tablet PO (07:48)
[2020-08-10 08:00] VITALS: BP 116/73; PULSE 62; RESP 14; TEMP 36.6; O2SAT 100
[2020-08-10] MEDS: Acetaminophen 500 MG Tablet PO (12:03)
[2020-08-10] MEDS: cloNIDine HCl 0.1 MG Tablet PO (12:04)
[2020-08-10] MEDS: hydrOXYzine PAM 25 MG Capsule 50 MG PO (12:04)
[2020-08-10 13:00] VITALS: BP 129/80; PULSE 88; RESP 18; TEMP 36.8; O2SAT 100
--- NOTE | 2020-08-10 13:52 | NURSING ---
PT CINA SCORE WAS 17, GAVE ONLY PRN MEDS AVAILABLE. CONTACTED DR HANNON AND LET HIM KNOW ABOUT THE SEVERE LEG PAIN AND NAUSEA, RECEIVED ORDER FOR PHENERGAN, PT DECLINED, HE WAS MORE ANXIOUS ABOUT THE PAIN. HE HAD BEEN AMBULATING HALLS AND PACING THE ROOM. I WROTE THE TIMES DOWN HIS NEXT MEDS WERE AVAILABLE BUT HE SAID HE JUST COULD'NT HANDLE IT ANYMORE. PT WALKED TO THE ELEVATOR, OFFERED TO REMOVE NICOTINE PATCH BUT PT PREFERRED TO LEAVE IT ON HE DOES NOT HAVE A [place] SMOKES AT THIS TIME.
== END 2020-08-10 13:36 | disposition left against medical advice (07) ==
LOC: ED 23:00 → MS3 08-10 00:26
PROVIDERS: Admitting Provider Internal Medicine; Emergency Provider Emergency Medicine; Visit Provider Internal Medicine
DX: F11.23 Opioid dependence with withdrawal (principal); F12.90 Cannabis use, unspecified, uncomplicated; F17.210 Nicotine dependence, cigarettes, uncomplicated
CPT/HCPCS: 36415; 80053; 80307; 82077; 85025; 99218; 99283; 99406; G0378